=== PATIENT | male | born 1995 | race Caucasian/White ===

== ENCOUNTER 2017-05-27 15:22 | Emergency (ER) | payer OTHER ==
[2017-05-27] MEDS ORDERED: LORazepam TAB(*) 1 MG PO ONE (16:18)
[2017-05-27 16:48] LABS: Urine Appearance Clear; Urine Blood Negative (Negative); Urine Color Straw; Urine Ketones Negative (Negative); Urine Protein Negative (Negative); Urine Specific Gravity 1.006 (1.010-1.030); Urine Urobilinogen Negative (Negative)
[2017-05-27 16:57] LABS: ABS Basophils 0 10^3/ul (0-0.2); ABS Eosinophils 0.1 10^3/ul (0-0.6); ABS Lymphocytes 1.3 10^3/ul (1.0-4.8); ABS Monocytes 0.6 10^3/ul (0-0.8); ABS Neutrophils 5.3 10^3/ul (1.5-7.7); ABS Nucleated RBC 0 10^3/ul; Eosinophil % 1.2 % (0-6); Hematocrit 44 % (42-52); Hemoglobin 15.3 g/dl (14.0-18.0); Lymphocyte % 17.9 % (25-47); Mean Corpuscular HGB Conc 35 g/dl (31-36); Mean Corpuscular Hemoglobin 31 pg (27-31); Mean Corpuscular Volume 89 fL (80-94); Mean Platelet Volume 7.7 um3 (7.4-10.4); Nucleated Red Blood Cells % 0; Platelet Count 260 10^3/ul (150-450); Red Blood Count 4.99 10^6/ul (4.0-5.4); Red Cell Distribution Width 13 % (10.5-15); White Blood Count 7.3 10^3/ul (3.5-10.8)
[2017-05-27 17:41] LABS: EGFR Non-African American 96.6 (>60)
[2017-05-27 18:23] VITALS: BP 136/68
--- NOTE | 2017-05-27 18:48 | ED ---
Complex/Multi-Sys Presentation - HPI Summary HPI Summary: Patient is an otherwise healthy 22-year-old male presenting to the ED with chief complaint of diarrhea, anxiety symptoms and feeling nauseous since last evening after taking a hydroxyzine. He was given hydroxyzine by his PCP for anxiety. He was also given Lexapro which she has not started at this time. He has had GI upset and diarrhea for several years which is been intermittent and he has never seen a GI physician for this in the past. He states it is likely related to his anxiety due to it worsening while he is having anxiety. He states last night after he took a hydroxyzine he was unable to sleep, felt ill, nauseous diarrhea. He denies any fevers, sweats, chills. Denies any constipation or vomiting. He takes no medications. Denies any suicidal or homicidal ideations. He is currently on a PPI for his gastric ulcer to which she was diagnosed with recently after having some epigastric pain. He has not taken any other medications. - History Of Current Complaint Chief Complaint: EDAbdPain Time Seen by Provider: 05/27/17 15:45 Hx Obtained From: Patient Onset/Duration: Gradual Onset Timing: Constant Severity Currently: Moderate Severity Initially: Moderate Location: Negative Associated Signs And Symptoms: Positive: Diarrhea - Allergies/Home Medications Allergies/Adverse Reactions: Allergies Allergy/AdvReac Type Severity Reaction Status Date / Time No Known Allergies Allergy Verified 04/17/15 18:22 PMH/Surg Hx/FS Hx/Imm Hx Previously Healthy: Yes Psychiatric History: Reports: Hx Anxiety Denies: Hx of Violent Episodes Against Others - Immunization History Hx Pertussis Vaccination: No Immunizations Up to Date: Unable to Obtain/Confirm Infectious Disease History: No Infectious Disease History: Denies: Traveled Outside the [place] in Last 30 Days - Family History Known Family History: Positive: None - reviewed & noncontributory - Social History Occupation: Unemployed Lives: With Family Alcohol Use: Occasionally Hx Substance Use: No Substance Use Type: Reports: None Hx Tobacco Use: No Smoking Status (MU): Never Smoked Tobacco Review of Systems Constitutional: Negative Negative: Fever, Chills, Fatigue, Skin Diaphoresis Eyes: Negative Cardiovascular: Negative Positive: Diarrhea Genitourinary: Negative Positive: no symptoms reported, see HPI Musculoskeletal: Negative Neurological: Negative Positive: Anxious All Other Systems Reviewed And Are Negative: Yes Physical Exam Triage Information Reviewed: Yes Vital Signs On Initial Exam: Initial Vitals Temp Pulse Resp BP Pulse Ox 99.5 F 53 18 144/67 100 05/27/17 15:30 05/27/17 15:30 05/27/17 15:30 05/27/17 15:30 05/27/17 15:30 Vital Signs Reviewed: Yes Appearance: Positive: Well-Appearing Skin: Positive: Warm, Skin Color Reflects Adequate Perfusion Head/Face: Positive: Normal Head/Face Inspection Eyes: Positive: EOMI, CLYDE, Conjunctiva Clear Neck: Positive: Supple, Nontender, No Lymphadenopathy Respiratory/Lung Sounds: Positive: Clear to Auscultation, Breath Sounds Present Cardiovascular: Positive: RRR, Pulses are Symmetrical in both Upper and Lower Extremities Musculoskeletal: Positive: Normal, Strength/ROM Intact Neurological: Positive: Speech Normal Psychiatric: Positive: Anxious Diagnostics - Vital Signs Vital Signs Temp Pulse Resp BP Pulse Ox 05/27/17 18:21 99 F 73 16 136/68 100 05/27/17 16:30 16 05/27/17 15:30 99.5 F 53 18 144/67 100 - Laboratory Lab Results: Lab Results 05/27/17 05/27/17 05/27/17 Range/Units 16:31 16:45 16:45 WBC 7.3 (3.5-10.8) 10^3/ul RBC 4.99 (4.0-5.4) 10^6/ul Hgb 15.3 (14.0-18.0) g/dl Hct 44 (42-52) % MCV 89 (80-94) fL MCH 31 (27-31) pg MCHC 35 (31-36) g/dl RDW 13 (10.5-15) % Plt Count 260 (150-450) 10^3/ul MPV 7.7 (7.4-10.4) um3 Neut % (Auto) 72.5 (38-83) % Lymph % (Auto) 17.9 L (25-47) % [place] % (Auto) 8.1 H (0-7) % Eos % (Auto) 1.2 (0-6) % Baso % (Auto) 0.3 (0-2) % Absolute Neuts (auto) 5.3 (1.5-7.7) 10^3/ul Absolute Lymphs (auto) 1.3 (1.0-4.8) 10^3/ul Absolute Monos (auto) 0.6 (0-0.8) 10^3/ul Absolute Eos (auto) 0.1 (0-0.6) 10^3/ul Absolute Basos (auto) 0 (0-0.2) 10^3/ul Absolute Nucleated RBC 0 10^3/ul Nucleated RBC % 0 ESR 0 (0-14) mm/Hr Sodium 140 (139-145) mmol/L Potassium 4.5 (3.5-5.0) mmol/L Chloride 104 (101-111) mmol/L Carbon Dioxide 28 (22-32) mmol/L Anion Gap 8 (2-11) mmol/L BUN 14 (6-24) mg/dL Creatinine 0.98 (0.67-1.17) mg/dL Est GFR ( Amer) 124.2 (>60) Est GFR (Non-Af Amer) 96.6 (>60) BUN/Creatinine Ratio 14.3 (8-20) Glucose 101 H (70-100) mg/dL Lactic Acid (0.5-2.0) mmol/L Calcium 10.0 (8.6-10.3) mg/dL Total Bilirubin 0.60 (0.2-1.0) mg/dL AST 15 (13-39) U/L ALT 11 (7-52) U/L Alkaline Phosphatase 62 (34-104) U/L C-Reactive Protein < 1.00 (< 5.00) mg/L Total Protein 7.4 (6.4-8.9) g/dL Albumin 4.8 (3.2-5.2) g/dL Globulin 2.6 (2-4) g/dL Albumin/Globulin Ratio 1.8 (1-3) TSH 0.38 (0.34-5.60) mcIU/mL Urine Color Straw Urine Appearance Clear Urine pH 8.0 (5-9) Ur Specific [place] 1.006 L (1.010-1.030) Urine Protein Negative (Negative) Urine Ketones Negative (Negative) Urine Blood Negative (Negative) Urine Nitrate Negative (Negative) Urine Bilirubin Negative (Negative) Urine Urobilinogen Negative (Negative) Ur Leukocyte Esterase Negative (Negative) Urine Glucose Negative (Negative) 05/27/17 Range/Units 16:45 WBC (3.5-10.8) 10^3/ul RBC (4.0-5.4) 10^6/ul Hgb (14.0-18.0) g/dl Hct (42-52) % MCV (80-94) fL MCH (27-31) pg MCHC (31-36) g/dl RDW (10.5-15) % Plt Count (150-450) 10^3/ul MPV (7.4-10.4) um3 Neut % (Auto) (38-83) % Lymph % (Auto) (25-47) % [place] % (Auto) (0-7) % Eos % (Auto) (0-6) % Baso % (Auto) (0-2) % Absolute Neuts (auto) (1.5-7.7) 10^3/ul Absolute Lymphs (auto) (1.0-4.8) 10^3/ul Absolute Monos (auto) (0-0.8) 10^3/ul Absolute Eos (auto) (0-0.6) 10^3/ul Absolute Basos (auto) (0-0.2) 10^3/ul Absolute Nucleated RBC 10^3/ul Nucleated RBC % ESR (0-14) mm/Hr Sodium (139-145) mmol/L Potassium (3.5-5.0) mmol/L Chloride (101-111) mmol/L Carbon Dioxide (22-32) mmol/L Anion Gap (2-11) mmol/L BUN (6-24) mg/dL Creatinine (0.67-1.17) mg/dL Est GFR ( Amer) (>60) Est GFR (Non-Af Amer) (>60) BUN/Creatinine Ratio (8-20) Glucose (70-100) mg/dL Lactic Acid 0.8 (0.5-2.0) mmol/L Calcium (8.6-10.3) mg/dL Total Bilirubin (0.2-1.0) mg/dL AST (13-39) U/L ALT (7-52) U/L Alkaline Phosphatase (34-104) U/L C-Reactive Protein (< 5.00) mg/L Total Protein (6.4-8.9) g/dL Albumin (3.2-5.2) g/dL Globulin (2-4) g/dL Albumin/Globulin Ratio (1-3) TSH (0.34-5.60) mcIU/mL Urine Color Urine Appearance Urine pH (5-9) Ur Specific [place] (1.010-1.030) Urine Protein (Negative) Urine Ketones (Negative) Urine Blood (Negative) Urine Nitrate (Negative) Urine Bilirubin (Negative) Urine Urobilinogen (Negative) Ur Leukocyte Esterase (Negative) Urine Glucose (Negative) Result Diagrams: 05/27/17 16:45 05/27/17 16:45 Lab Statement: Any lab studies that have been ordered have been reviewed, and results considered in the medical decision making process. Complex Multi-Symp Course/Dx Course Of Treatment: During the course of treatment, the patient's evaluated for anxiety versus diarrhea versus viral syndrome versus other pathology. Labs obtained and are unremarkable. He is anxious on arrival, but denies any suicidal or homicidal ideations. Denies any self-harm. He was prescribed Lexapro but has not started to take this medication at this time. He was given hydroxyzine and things he may have had a side effect. Due to his anxiety behaviors on arrival, I have advised he take 1 mg Ativan and he agrees to this. I have offered a GI referral as his diarrhea and nausea symptoms may be unrelated to his anxiety and due to the long history of GI upset, I feel it is important he follow-up with him for further evaluation. One hour s/p Ativan, patient is feeling improved. Stomach continues to be upset due to his diarrhea earlier this afternoon, but he denies any anxiety symptoms at this time. I've given him a prescription for Ativan times a maximum of 5 days. He is to follow- up with his PCP and he is to start taking his Lexapro tomorrow night. He is encouraged to continue all of his other medications at home as scheduled. - Diagnoses Provider Diagnoses: Diarrhea, Anxiety Discharge - Sign-Out/Discharge Documenting (check all that apply): Discharge - Discharge Plan Condition: Stable Disposition: HOME Prescriptions: LORazepam TAB(*) [Ativan 1 MG TAB (*)] 1 mg PO Q8H PRN #15 tab MDD 3 PRN Reason: Anxiety Patient Education Materials: Lorazepam (By mouth), Anxiety (ED) Referrals: Candelario Alvarez MD [Medical Doctor] - No Primary Care Phys,NOPCP [Primary Care Provider] - Additional Instructions: Please follow up with GI I have given you a referral Take the ativan as prescribed and no more than 3 times daily Please follow up with your PCP as well Begin your lexapro tomorrow evening If you develop any worsening or changing symptoms, return to the ED - Billing Disposition and Condition Condition: STABLE Disposition: HOME
== END 2017-05-27 18:21 | disposition home or self-care (01) ==
LOC: ED 15:22
DX: R19.7 Diarrhea, unspecified (principal); F41.9 Anxiety disorder, unspecified
CPT/HCPCS: 36415; 80053; 81003; 83605; 84443; 85025; 85652; 86140; 99282; A9270-GY

== ENCOUNTER 2017-05-31 21:10 | Emergency (ER) | payer OTHER ==
[2017-05-31] MEDS ORDERED: Ketorolac INJ* 60 MG/2 ML VIAL IM ONE (21:53)
[2017-05-31] MEDS ORDERED: Ondansetron ODT TAB* 4 MG SL ONE (21:53)
[2017-05-31] MEDS ORDERED: O ndansetron ODT 4MG 2TAB PRPK 4 MG PAK PO ONE (22:29)
--- NOTE | 2017-05-31 22:33 | ED ---
Back Pain - HPI Summary HPI Summary: Patient is a 22-year-old male presenting to the ED for the second time in 3 days. He states he has been having right rib pain, however he denies any trauma or known injury to the area. History of severe anxiety and was seen here 3 days ago for nausea, vomiting, diarrhea secondary to his anxiety symptoms. He was given Ativan at that time with symptom relief. However, today he states despite his Ativan for his anxiety, he continues to have the right rib pain. Denies any difficulty breathing or shortness of breath. Denies any fevers, sweats, chills. He denies any vomiting or diarrhea this date , but continues to have nausea. He rates the nausea 7 out of 10, and the pain an 8 out of 10. Symptoms are aggravated with nothing and alleviated with nothing. - History of Current Complaint Chief Complaint: EDChestWallPain Stated Complaint: RIB PAIN Time Seen by Provider: 05/31/17 21:21 Hx Obtained From: Patient Onset/Duration: Sudden Onset Onset/Duration: Started Hours Ago Timing: Constant Back Pain Location: Is Diffuse Severity Initially: Mild Severity Currently: Mild Pain Intensity: 8 Pain Scale Used: 0-10 Numeric Character: Aching Associated Signs And Symptoms: Positive: Negative - Risk Factors AAA Risk Factors: Negative TAD Risk Factors: Negative Cauda Equina Risk Factors: Negative Epidural Abscess Risk Factors: Negative - Allergies/Home Medications Allergies/Adverse Reactions: Allergies Allergy/AdvReac Type Severity Reaction Status Date / Time No Known Allergies Allergy Verified 04/17/15 18:22 PMH/Surg Hx/FS Hx/Imm Hx Previously Healthy: Yes Psychiatric History: Reports: Hx Anxiety Denies: Hx of Violent Episodes Against Others - Immunization History Hx Pertussis Vaccination: No Immunizations Up to Date: Unable to Obtain/Confirm Infectious Disease History: No Infectious Disease History: Denies: Traveled Outside the [place] in Last 30 Days - Family History Known Family History: Positive: None - reviewed & noncontributory - Social History Occupation: Employed Full-time Lives: With Family Alcohol Use: Occasionally Hx Substance Use: No Substance Use Type: Reports: None Hx Tobacco Use: No Smoking Status (MU): Never Smoked Tobacco Review of Systems Negative: Fever, Chills, Fatigue, Skin Diaphoresis Negative: Epistaxis, Dental Pain, Sore Throat Negative: Palpitations, Chest Pain Negative: Shortness Of Breath, Cough Positive: Nausea Positive: Arthralgia - R rib pain Negative: Rash, Bruising Positive: Anxious All Other Systems Reviewed And Are Negative: Yes Physical Exam Triage Information Reviewed: Yes Vital Signs On Initial Exam: Initial Vitals Temp Pulse Resp BP Pulse Ox 98.9 F 54 16 127/68 99 05/31/17 21:14 05/31/17 21:14 05/31/17 21:14 05/31/17 21:14 05/31/17 21:14 Vital Signs Reviewed: Yes Appearance: Positive: Well-Appearing, Well-Nourished Skin: Positive: Warm, Skin Color Reflects Adequate Perfusion Head/Face: Positive: Normal Head/Face Inspection Eyes: Positive: EOMI, CLYDE, Conjunctiva Clear Neck: Positive: Supple, No Lymphadenopathy Respiratory/Lung Sounds: Positive: Clear to Auscultation, Breath Sounds Present Cardiovascular: Positive: RRR, Pulses are Symmetrical in both Upper and Lower Extremities Musculoskeletal: Positive: Strength/ROM Intact Neurological: Positive: Speech Normal Psychiatric: Positive: Anxious Diagnostics - Vital Signs Vital Signs Temp Pulse Resp BP Pulse Ox 05/31/17 21:14 98.9 F 54 16 127/68 99 - Laboratory Lab Statement: Any lab studies that have been ordered have been reviewed, and results considered in the medical decision making process. Back Pain Course/Dx - Course Course Of Treatment: This is the second visit in them timeframe of 3 days for this patient. Endorses severe anxiety which has led to nausea, vomiting, diarrhea. He was given Ativan 1 mg tabs as a prescription with some relief. However, today he notes to right rib pain and denies any trauma. Rib x-rays obtained and read by myself, Felicita Melchor as normal with no acute fractures. I believe this is a manifestation of his severe anxiety. He also continues to have nausea. I have given him Zofran with a mild amount of relief. Toradol 60 mg given. He is also given 0.5 Xanax. I have discussed that this most likely is a manifestation of his anxiety, and not a rib contusion or other pain. I discussed the case with Dr. iYn who agrees he is okay for discharge and does not warrant further evaluation or imaging at this time. He is okay with this plan and discharge. - Diagnoses Provider Diagnoses: Anxiety, Rib pain on right side Discharge - Sign-Out/Discharge Documenting (check all that apply): Discharge - Discharge Plan Condition: Stable Disposition: HOME Prescriptions: Ondansetron ODT TAB* [Zofran 4 MG Odt TAB*] 4 mg PO Q6H PRN #12 tab.odt MDD 4 PRN Reason: Nausea Referrals: Candelario Alvarez MD [Medical Doctor] - No Primary Care Phys,NOPCP [Primary Care Provider] - Neil Lakhani MD [Medical Doctor] - Additional Instructions: Please follow up with GI as discussed Zofran is given to you in the ED as well as prescribed pharmacy Take this medication up to every 4-6 hours as needed for nausea Continue with your Ativan as needed for anxiety symptoms Continue with your PPI omeprazole every day If you're unable to get in with GI, call the ED - Billing Disposition and Condition Condition: STABLE Disposition: HOME
[2017-05-31] MEDS ORDERED: ALPRAZolam TAB* 0.5 MG PO ONE (22:40)
[2017-05-31 23:19] VITALS: BP 123/65
--- NOTE | 2017-06-01 07:22 | RAD ---
INDICATION: Right lateral rib pain. COMPARISON: There are no prior studies available for comparison. TECHNIQUE: 4 views of the right ribs and dual-energy PA views of the chest were obtained. FINDINGS: No fracture or significant focal osseous abnormality is seen. The heart is within normal limits in size. The lungs are clear. There is no evidence for pneumothorax or pleural effusion. IMPRESSION: NO EVIDENCE FOR FRACTURE.
== END 2017-05-31 23:16 | disposition home or self-care (01) ==
LOC: ED 21:10
DX: R07.81 Pleurodynia (principal); F41.9 Anxiety disorder, unspecified
CPT/HCPCS: 96372; 99282; A9270-GY; J1885